=== PATIENT | female | born 1970 ===

== ENCOUNTER 2021-11-29 15:21 | Outpatient (CLI) | payer OTHER, SELFPAY ==
[2021-11-29 21:59] LABS: Creatine Kinase* 57 U/L (41-117); Magnesium* 2.1 mg/dL (1.5-2.6)
[2021-11-29 22:11] LABS: Vitamin D 25 Hydroxy* 50 ng/mL (30-80)
[2021-11-29 22:29] LABS: Ferritin* 32.9 ng/mL (11.1-264.0)
[2021-11-29 22:45] LABS: Vitamin B12* 474 pg/mL (243-894)
== END 2021-11-29 15:22 | disposition home or self-care (01) ==
PROVIDERS: PCP Physician Assistant Medical; Visit Provider Physician Assistant Medical
DX: M79.604 Pain in right leg (principal); M79.605 Pain in left leg; K90.0 Celiac disease; Z86.73 Personal history of transient ischemic attack (TIA), and cerebral infarction without residual deficits; Z13.0 Encounter for screening for diseases of the blood and blood-forming organs and certain disorders involving the immune mechanism; Z86.39 Personal history of other endocrine, nutritional and metabolic disease
CPT/HCPCS: 82306; 82550; 82607; 82728; 83735